=== PATIENT | male | born 1970 | race Caucasian/White ===

== ENCOUNTER 2020-08-21 04:46 | Emergency (ER) | payer OTHER ==
[2020-08-21] MEDS ORDERED: PREDNISONE20 MG PO (06:44)
== END 2020-08-21 06:49 | disposition home or self-care (01) ==
LOC: ER1 04:46
DX: L50.9 Urticaria, unspecified (principal); F17.200 Nicotine dependence, unspecified, uncomplicated; Z88.1 Allergy status to other antibiotic agents
CPT/HCPCS: 96365; 96375; 99282; J2930

== ENCOUNTER 2020-08-30 08:47 | Emergency (ER) | payer OTHER ==
[~2020-08-30 08:47] MED LIST: PREDNISONE20 MG PO
[2020-08-30] MEDS ORDERED: BENADRYL25 MG PO (10:03)
[2020-08-30] MEDS ORDERED: MEDROL4 MG PO (10:03)
== END 2020-08-30 10:08 | disposition home or self-care (01) ==
LOC: ER1 08:47
DX: R21 Rash and other nonspecific skin eruption (principal); F17.200 Nicotine dependence, unspecified, uncomplicated; Z91.018 Allergy to other foods
CPT/HCPCS: 96372; 99282; J1200; J2930